=== PATIENT | male | born 1975 | race African-American/Black ===

== ENCOUNTER 2018-01-12 16:00 | Emergency (ER) | payer OTHER ==
[~2018-01-12] VITALS: Ht 185.4 cm; Wt 122.5 kg
[2018-01-12 15:59] VITALS: BP 124/62
[~2018-01-12 16:00] MED LIST: DILANTIN30 MG ORAL; TEGRETOL100 MG/5 M PO
[2018-01-12 16:55] LABS: BASOPHILS % (AUTO) 1.4 % (0.0-2.0); EOSINOPHILS % (AUTO) 0.5 % (0.0-3.0); HEMATOCRIT 44.7 % (42.0-52.0); HEMOGLOBIN 15.3 G/DL (14.2-18.0); LYMPHOCYTES % (AUTO) 21.1 % (20.0-45.0); MEAN CORPUSCULAR VOLUME 84 FL (80-99); MONOCYTES % (AUTO) 4.2 % (1.0-10.0); NEUTROPHILS % (AUTO) 72.8 % (45.0-75.0); PLATELET COUNT 289 K/UL (150-450); RED BLOOD COUNT 5.32 M/UL (4.70-6.10); RED CELL DISTRIBUTION WIDTH 11.3 % (11.6-14.8); WHITE BLOOD COUNT 14.7 K/UL (4.8-10.8)
[2018-01-12 16:57] LABS: ANION GAP 14 mmol/L (5-15); BLOOD UREA NITROGEN 13 mg/dL (7-18); CALCIUM 9.1 MG/DL (8.5-10.1); CARBON DIOXIDE 23 MMOL/L (21-32); CHLORIDE 104 MMOL/L (98-107); CREATININE 1.3 MG/DL (0.55-1.30); POTASSIUM 3.5 MMOL/L (3.5-5.1); SODIUM 141 MMOL/L (136-145)
[2018-01-12] MEDS ORDERED: Phenytoin 100mg cap ORAL ONE (17:15)
--- NOTE | 2018-01-12 17:28 | Emergency Room Report ---
History of Present Illness General Chief Complaint: Seizure Source: Patient, EMS Present Illness HPI Patient presents with reports of seizure activity this morning And 1 prior to arrival At this time patient is awake and alert reports that he was having seizures as a child They did seem to improve however again in 1999 began having Seizures patient is following a clinic closely Is on Tegretol and Dilantin Denies any chest pain or short of breath denies any headache Denies any focal weakness feels back to his baseline mental status Allergies: Coded Allergies: No Known Allergies (Unverified , 01/12/18) Patient History Past Medical History: see triage record Pertinent Family History: none Reviewed Nursing Documentation: PMH: Agreed; PSxH: Agreed Nursing Documentation-PMH Past Medical History: No History, Except For Hx Seizures: Yes Review of Systems All Other Systems: negative except mentioned in HPI Physical Exam Vital Signs Date Time Temp Pulse Resp B/P (MAP) Pulse Ox O2 Delivery O2 Flow Rate FiO2 01/12/18 15:32 98.5 106 18 130/83 96 Room Air 98.4 Sp02 EP Interpretation: reviewed, normal General Appearance: well appearing, no apparent distress Head: normocephalic, atraumatic Eyes: bilateral eye PERRL, bilateral eye EOMI ENT: hearing grossly normal, normal pharynx, TMs + canals normal, uvula midline Neck: full range of motion, supple, no meningismus, no bony tend Respiratory: lungs clear, normal breath sounds, no rhonchi, no respiratory distress, no retraction, no accessory muscle use Cardiovascular #1: normal peripheral pulses, regular rate, rhythm, no edema, no gallop, no JVD, no murmur Gastrointestinal: normal bowel sounds, non tender, soft, no mass, no organomegaly, non-distended, no guarding, no hernia, no pulsatile mass, no rebound Genitourinary: no CVA tenderness Musculoskeletal: normal inspection Neurologic: oriented x3, responsive, structural engineering technician III-XII nml as tested, motor strength/ tone normal, sensory intact Psychiatric: mood/affect normal Skin: normal color, no rash, warm/dry, palpation normal Lymphatic: normal inspection, no adenopathy Medical Decision Making Diagnostic Impression: Primary Impression: Seizure disorder ER Course Patient is neurologically intact repeat CT imaging was not performed given the past medical history Patient's Dilantin level is low this is replaced in the ER Patient is notified regarding the low level Observed for several hours in the emergency room remains seizure-free and is stable for close outpatient follow-up Labs Test 01/12/18 16:00 White Blood Count 14.7 K/UL (4.8-10.8) Red Blood Count 5.32 M/UL (4.70-6.10) Hemoglobin 15.3 G/DL (14.2-18.0) Hematocrit 44.7 % (42.0-52.0) Mean Corpuscular Volume 84 FL (80-99) Mean Corpuscular Hemoglobin 28.8 PG (27.0-31.0) Mean Corpuscular Hemoglobin Concent 34.2 G/DL (32.0-36.0) Red Cell Distribution Width 11.3 % (11.6-14.8) Platelet Count 289 K/UL (150-450) Mean Platelet Volume 7.1 FL (6.5-10.1) Neutrophils (%) (Auto) 72.8 % (45.0-75.0) Lymphocytes (%) (Auto) 21.1 % (20.0-45.0) Monocytes (%) (Auto) 4.2 % (1.0-10.0) Eosinophils (%) (Auto) 0.5 % (0.0-3.0) Basophils (%) (Auto) 1.4 % (0.0-2.0) Sodium Level 141 MMOL/L (136-145) Potassium Level 3.5 MMOL/L (3.5-5.1) Chloride Level 104 MMOL/L (98-107) Carbon Dioxide Level 23 MMOL/L (21-32) Anion Gap 14 mmol/L (5-15) Blood Urea Nitrogen 13 mg/dL (7-18) Creatinine 1.3 MG/DL (0.55-1.30) Estimat Glomerular Filtration Rate > 60 mL/min (>60) Glucose Level 111 MG/DL (74-106) Calcium Level 9.1 MG/DL (8.5-10.1) Phenytoin (Dilantin) Level 5.4 ug/mL (10-20) Carbamazepine (Tegretol) Level 5.0 ug/mL (4.0-12.0) Last Vital Signs Date Time Temp Pulse Resp B/P (MAP) Pulse Ox O2 Delivery O2 Flow Rate FiO2 01/12/18 16:00 100 18 Room Air 01/12/18 15:59 98.4 124/62 98 98.4 Status: improved Disposition: HOME, SELF-CARE Condition: Improved Scripts Carbamazepine (TEGRETOL*) 200 Mg Tablet 400 MG PO BID, #90 TAB Prov: Vane Zhao DO 01/12/18 Additional Instructions: Patient is provided with the discharge instructions notified to follow up with primary doctor in the next 2-3 days otherwise return to the er with any worsening symptoms. Please note that this report is being documented using [employer] technology. This can lead to erroneous entry secondary to incorrect interpretation by the dictating instrument. Vane Zhao DO Jan 12, 2018 17:28
[2018-01-12] MEDS ORDERED: TEGRETOL200 MG PO (17:30)
[2018-01-12 17:54] VITALS: BP 128/82
[2018-01-12 19:00] VITALS: BP 121/78
[2018-01-12 19:15] VITALS: BP 121/78
== END 2018-01-12 19:15 | disposition home or self-care (01) ==
LOC: EDBD 16:00 → EMR 16:30
DX: G40.909 Epilepsy, unspecified, not intractable, without status epilepticus (principal)
CPT/HCPCS: 36415; 80048; 80156; 80185; 85025; 99283

== ENCOUNTER 2018-01-13 00:32 | Emergency (ER) | payer OTHER ==
[~2018-01-13] VITALS: Ht 182.9 cm; Wt 102.1 kg
[2018-01-13 00:26] VITALS: BP 126/80
[~2018-01-13 00:32] MED LIST changes: +TEGRETOL200 MG PO
--- NOTE | 2018-01-13 01:16 | Emergency Room Report ---
History of Present Illness General Chief Complaint: Seizure Source: EMS Present Illness HPI Pt. left here few hours ago. Was given IV Dilantin here ~5 pm. He says he has his meds at home. His parents called ambulance. He says he knows he does not need to be here. It is not knowable if he had sz at home and patient says he is fine to go and no complaint. No trauma, no headache, no urinary complaint. He was sleeping in gurney until I could talk with him and when I did talk with him he was fine without complaint. Dilantin low, Tegretol borderline earlier. Allergies: Coded Allergies: No Known Allergies (Unverified , 01/12/18) UNABLE TO ASSESS (Unverified , 01/13/18) Nursing Documentation-[facility] Hx Seizures: Yes Review of Systems Constitutional: Denies: fever Eye: Denies: acuity changes Respiratory: Denies: cough, shortness of breath Cardiovascular: Denies: chest pain Gastrointestinal: Denies: nausea, vomiting Skin: Denies: rash Neurological: Denies: headache Physical Exam Vital Signs Date Time Temp Pulse Resp B/P (MAP) Pulse Ox O2 Delivery O2 Flow Rate FiO2 01/13/18 00:14 98.5 98 16 136/94 98 Room Air 98.4 General Appearance: well appearing, no apparent distress, obese Head: normocephalic, atraumatic ENT: hearing grossly normal, normal voice Neck: full range of motion, supple Respiratory: no respiratory distress, speaking full sentences Musculoskeletal: no calf tenderness Neurologic: alert, normal gait Psychiatric: mood/affect normal Skin: no rash Medical Decision Making Diagnostic Impression: Primary Impression: Seizure disorder Last Vital Signs Date Time Temp Pulse Resp B/P (MAP) Pulse Ox O2 Delivery O2 Flow Rate FiO2 01/13/18 00:26 98 18 Room Air 01/13/18 00:26 98.4 126/80 98 98.4 Disposition: HOME, SELF-CARE Patient Instructions: Seizure, Adult Jose Ramon Apodaca M.D. Jan 13, 2018 01:16
[2018-01-13 01:36] VITALS: BP 126/70
[2018-01-13 02:10] VITALS: BP 126/70
== END 2018-01-13 02:20 | disposition home or self-care (01) ==
LOC: EDBD 00:32 → EMR 02:16
DX: G40.909 Epilepsy, unspecified, not intractable, without status epilepticus (principal)
CPT/HCPCS: 99284